=== PATIENT | female | born 1985 | race Caucasian/White ===

== ENCOUNTER 2021-08-08 02:32 | Emergency (ER) | payer MEDICAID ==
[~2021-08-08] VITALS: Ht 165.1 cm; Wt 57.0 kg
[2021-08-08 02:57] VITALS: BP 136/85
== END 2021-08-08 05:11 | disposition left against medical advice (07) ==
LOC: ER 02:32
DX: Z53.21 Procedure and treatment not carried out due to patient leaving prior to being seen by health care provider (principal)